=== PATIENT | male | born 1945 | race Caucasian/White ===

== ENCOUNTER 2016-09-01 08:48 | Day surgery (SDC) | payer MEDICARE, OTHER ==
[~2016-09-01] VITALS: Ht 177.8 cm; Wt 81.9 kg
[~2016-09-01 08:48] MED LIST: ASPI-557 PO; ESOM40CA PO; GLUC-176 PO; HYDR-2540 PO; LIDOCAINE 1% (10mg/ml) 2ml SDV INJ ONE; LR 1,000 ML IV SCH; MULT1CAP32 PO
--- OUTSIDE RECORDS SUMMARY | 2016-09-01 08:51 | XMS REPORT | Continuity of Care Document ---
Author Author [facility] Organization [facility] Address Unknown Phone Unavailable Support Name Relationship Address Phone ANGIE NATHAN MD Caregiver Unknown [phone] ERICK HOOK FACS, MD Caregiver [address] [place] [address] [place] [address] [phone] SPENCER CHAPMAN Next Of Kin [address] [place] [id number] Insurance Providers Payer Name Policy Number Subscriber Name Relationship Medicare [id number] David Chapman 18 Self Prime Wps [id number] David Chapman 18 Self Advance Directives Directive Response Recorded Date/Time Ordered Resuscitation Status Full Code 06/30/14 10:16am Resuscitation Documents on File No 06/30/14 9:20am Problems No known problems or medical conditions. Medications Medication Dose Route Sig Days/Qty Instructions Order Date Discontinued Date Status Aspirin 1 Tab PO DAILY 06/30/14 Active Hydrochlorothiazide 1 Tab PO GIVE WITH BREAKFAST 06/30/14 Active Multivitamin 1 Tab PO DAILY 06/30/14 Active Esomeprazole Magnesium 1 Cap PO DAILY 06/30/14 Active Glucosamine HCl/Chondr Spivey A Na 1 Tab PO DAILY 06/30/14 Active Social History Social History Problem Response Recorded Date/Time Chewing Tobacco Status No 06/30/2014 9:10am Hx Substance Use No 06/30/2014 9:10am Hx Alcohol Use Y OCCASIONAL 06/30/2014 9:10am Has the pt used tobacco in the last 12 months No 07/01/2014 7:30am Query Response Start Date Stop Date Smoking Status Never smoker Hospital Discharge Instructions No hospital discharge instructions. Plan of Care No plan of care. Functional Status No functional status results. Allergies, Adverse Reactions, Alerts Allergen Type Severity Reaction Status Last Updated NKDA Allergy Unknown Active 06/30/14 Immunizations Name Given Type Hx Influenza Vaccination Y 2013 Historical Hx Pneumococcal Vaccination No Historical Hx Influenza Vaccination Y 2013 Historical Vital Signs Acute Vital Signs Vital Response Date/Time Temperature (Fahrenheit) 98.0 deg F (96.8 - 99.1) Temperature (Calculated Celsius) 36.14214 degrees C (36.0 - 37.3) Temperature Source Temporal Pulse Rate (adult) 74 bpm (60 - 100) Respiratory Rate 16 breaths/min (10 - 20) O2 Sat by Pulse Oximetry 95 % (90 - 100) Oxygen Delivery Method Room Air Blood Pressure 145/77 mm Hg Blood Pressure Source Automatic Cuff Height 5 ft 11 in Weight 189 lb Body Mass Index 26.0 kg/m^2 Results Test Source Date Result Interp. Ref. Range Comments Activated Partial Thromboplast Time November 18, 2011 2:00am 30.0 SEC N 24- 36 Are you ordering this test to rule out VTE Yes Alanine Aminotransferase (ALT/SGPT) November 18, 2011 2:00am 10 U/L L 21-72 Albumin November 18, 2011 2:00am 4.0 G/DL N 3.5-5.0 Albumin/Globulin Ratio November 18, 2011 2:00am 1.6 RATIO N 1.1-2.2 Alkaline Phosphatase November 18, 2011 2:00am 67 U/L N 38-126 Anion Gap July 01, 2014 7:22am 10 MEQ/L N 5-15 COMMENT PREOP WILL CALL Aspartate Amino Transf (AST/SGOT) November 18, 2011 2:00am 20 U/L N 17-59 BUN/Creatinine Ratio July 01, 2014 7:22am 13 RATIO N 6-26 COMMENT PREOP WILL CALL Basophils # (Auto) November 18, 2011 2:00am 0.0 T/MM3 N 0-0.2 Are you ordering this test to rule out VTE Yes Basophils (%) (Auto) November 18, 2011 2:00am 0.3 % N 0-2 Are you ordering this test to rule out VTE Yes Blood Urea Nitrogen July 01, 2014 7:22am 13.0 MG/DL N 9-20 COMMENT PREOP WILL CALL Calcium Level July 01, 2014 7:22am 9.3 MG/DL N 8.4-10.2 COMMENT PREOP WILL CALL Calculated Osmolality July 01, 2014 7:22am 277 MOSM/KG N 261-280 COMMENT PREOP WILL CALL Carbon Dioxide Level July 01, 2014 7:22am 31 MEQ/L H 22-30 COMMENT PREOP WILL CALL Chemistry Specimen Hemolysis July 01, 2014 7:22am < 15 0-25 0-25: No Hemolysis.26-70: Slight Hemolysis - can falsely elevate K and Urine Protein. 71-285: Moderate Hemolysis - can falsely elevate K, Troponin I, CA 19-9, PTH, CSF GLucose, and Urine Protein, and can falsely decrease Phenytoin. 286-999: Gross Hemolysis - can falsely elevate K, Troponin I, CA 19-9, PTH, CSF Glucose, and Urine Protine, and can falsely decrease Phenytoin. Recommend specimen recollection. Chloride Level July 01, 2014 7:22am 103 MEQ/L N 98-107 COMMENT PREOP WILL CALL Conjugated Bilirubin November 18, 2011 2:00am 0.00 MG/DL N 0.00-0.30 Creatinine July 01, 2014 7:22am 1.0 MG/DL N 0.8-1.5 COMMENT PREOP WILL CALL D-Dimer November 18, 2011 2:00am < 150 NG/ML 0-230 <224 NG/ML= PRESUMPTIVE NEGATIVE FOR PE OR DVT>224 NG/ML=ADDITIONAL EVALUATION FOR PE OR DVT RECOMMENDED Eosinophils # (Auto) November 18, 2011 2:00am 0.1 T/MM3 N 0-0.5 Are you ordering this test to rule out VTE Yes Eosinophils (%) (Auto) November 18, 2011 2:00am 1.2 % N 0-4 Are you ordering this test to rule out VTE Yes Globulin November 18, 2011 2:00am 2.5 G/DL N 2.4-3.6 Glomerular Filtration Rate Calc July 01, 2014 7:22am 75 - COMMENT PREOP WILL CALL Glucose Level July 01, 2014 7:22am 98 MG/DL N 75-110 COMMENT PREOP WILL CALL Hematocrit November 18, 2011 2:00am 40.9 % L 41-53 Are you ordering this test to rule out VTE Yes Hemoglobin November 18, 2011 2:00am 15.5 GM/DL N 13.5-17.5 Are you ordering this test to rule out VTE Yes Icterus Index July 01, 2014 7:22am < 2 0-7 COMMENT PREOP WILL CALL Immature Granulocyte # (Auto) November 18, 2011 2:00am 0.01 T/MM3 N 0.00- 0.03 Are you ordering this test to rule out VTE Yes Immature Granulocyte % (Auto) November 18, 2011 2:00am 0.2 % N 0.0-0.5 Are you ordering this test to rule out VTE Yes Lipase November 18, 2011 2:00am 125 U/L N 23-300 Lymphocytes # (Auto) November 18, 2011 2:00am 2.1 T/MM3 N 1-4.8 Are you ordering this test to rule out VTE Yes Lymphocytes (%) (Auto) November 18, 2011 2:00am 32.4 % N 23-45 Are you ordering this test to rule out VTE Yes Mean Corpuscular Hemoglobin November 18, 2011 2:00am 31.8 UUG N 26-34 Are you ordering this test to rule out VTE Yes Mean Corpuscular Hemoglobin Concent November 18, 2011 2:00am 37.9 GM/DL H 31 -37 Are you ordering this test to rule out VTE Yes Mean Corpuscular Volume November 18, 2011 2:00am 84.0 UM3 N 80-100 Are you ordering this test to rule out VTE Yes Mean Platelet Volume November 18, 2011 2:00am 10.3 UM3 N 9.4-12.4 Are you ordering this test to rule out VTE Yes Monocytes # (Auto) November 18, 2011 2:00am 0.5 T/MM3 N 0-0.8 Are you ordering this test to rule out VTE Yes Monocytes (%) (Auto) November 18, 2011 2:00am 7.1 % N 0-9.0 Are you ordering this test to rule out VTE Yes VD-Xbp-U-Type Natriuretic Peptide November 18, 2011 2:00am 32 PG/ML N 0-175 Rule in cut points: <50 years old=450; 50-75 years old=900; >75 years old=1800; When utilizing ProBNP rule-in cut points, adjustment for impaired renal function is typically not required. Neutrophils # (Auto) November 18, 2011 2:00am 3.8 T/MM3 N 1.8-7.7 Are you ordering this test to rule out VTE Yes Neutrophils (%) (Auto) November 18, 2011 2:00am 58.8 % N 33-66 Are you ordering this test to rule out VTE Yes Platelet Count November 18, 2011 2:00am 188 T/MM3 N 130-400 Are you ordering this test to rule out VTE Yes Potassium Level July 01, 2014 7:22am 3.5 MEQ/L L 3.6-5 COMMENT PREOP WILL CALL Prothromb Time International Ratio November 18, 2011 2:00am 0.92 N 0.86- 1.10 THERAPUTIC RANGE=2.00-3.00 FOR ANTI-THROMBOSIS THERAPUTIC RANGE=2.50- 3.50 FOR IMPLANTED VALVE RDW Standard Deviation November 18, 2011 2:00am 39.3 FL N 36.9-50.2 Are you ordering this test to rule out VTE Yes Red Blood Count November 18, 2011 2:00am 4.87 M/MM3 N 4.50-5.90 Are you ordering this test to rule out VTE Yes Sodium Level July 01, 2014 7:22am 144 MEQ/L N 134-144 COMMENT PREOP WILL CALL Total Bilirubin November 18, 2011 2:00am 2.40 MG/DL H 0.20-1.30 Total Protein November 18, 2011 2:00am 6.5 G/DL N 6.3-8.2 Troponin I November 18, 2011 2:00am < 0.012 ng/ml 0-0.12 Turbidity July 01, 2014 7:22am < 20 0-20 COMMENT PREOP WILL CALL Unconjugated Bilirubin November 18, 2011 2:00am 2.20 MG/DL H 0.00-1.10 White Blood Count November 18, 2011 2:00am 6.5 T/MM3 N 4.5-11.0 Are you ordering this test to rule out VTE Yes Name: DAVID CHAPMAN Unit #: [id number] : 1945 Sex: M Loc / Svc: [facility] DOS: 05/21/14 Signed Report #: [id number] DIAGNOSTIC IMAGING REPORT TYPE OF EXAM: CT CHEST W/O CONTRAST Dictated By: DANA KENDALL MD INDICATION: ITS.REASON: PULMONARY NODULES CT CHEST W/O CONTRAST: Comparison: None Technique: Axial CT images were performed through the chest without intravenous contrast. Findings: 5 mm noncalcified nodule in the right lower lobe on image #43. The remainder of the right lung appears clear. Small 4 mm noncalcified nodule in the left lower lobe on image #47. Possible tiny nodule along the left diaphragmatic surface on image #54 measuring 5 mm. No additional pulmonary nodules or masses. Area of probable scarring within the lingula. No pleural effusion or pneumothorax. The central airways are patent. Thyroid gland appears normal. No axillary or mediastinal lymphadenopathy. Heart size is normal. No pericardial effusion. Left anterior descending coronary artery calcification. Unenhanced organs of the upper abdomen appear unremarkable part from multiple gallstones. Bone windows show no lytic or blastic osseous lesions. Impression: Two small pulmonary nodules as described above. These are most likely granulomas. Metastatic disease is thought to be less likely unless the patient has a known cancer diagnosis. Recommend correlation with outside studies to evaluate for interval change. If these have not been stable for two years, follow-up CT is recommended in 12 months if the patient is at low risk for lung malignancy or 6-12 months if he is at high risk for lung malignancy. . Procedures Procedure Status Date Provider(s) CT THORAX W/O DYE completed 05/21/14 Inguinal hernia repair completed 07/01/14 ERICK HOOK MD, FACS, CWS Encounters Encounter Location Date/Time Registered Clinic [facility] 05/21/14 12:44pm
--- OUTSIDE RECORDS SUMMARY | 2016-09-01 08:51 | XMS REPORT | Continuity of Care Document ---
Author Author [facility] Organization [facility] Address Unknown Phone Unavailable Support Name Relationship Address Phone ANGIE NATHAN MD Caregiver Unknown [phone] CATIE FORRESTER MD Caregiver [address] [place] [address] Unavailable SPENCER CHAPMAN Next Of Kin [address] [place] [address] Insurance Providers Payer Name Policy Number Subscriber Name Relationship Medicare [id number] David Chapman 18 Self Prime Wps [id number] David Chapman 18 Self Advance Directives Directive Response Recorded Date/Time Advanced Directives Type None 08/06/14 4:25am Problems Medical Problems Problem Onset Date Status Gall stones Unknown Active Gastritis Unknown Active Abdominal pain Unknown Active Medications Medication Dose Route Sig Days/Qty Instructions Order Date Discontinued Date Status Aspirin 1 Tab PO DAILY 06/30/14 Active Hydrochlorothiazide 1 Tab PO GIVE WITH BREAKFAST 06/30/14 Active Multivitamin 1 Tab PO DAILY 06/30/14 Active Esomeprazole Magnesium 1 Cap PO DAILY 06/30/14 Active Glucosamine HCl/Chondr Spivey A Na 1 Tab PO DAILY 06/30/14 Active Prochlorperazine Maleate 10 Mg PO THREE TIMES A DAY For NAUSEA &/OR VOMITING 30 Qty 08/06/14 Active Social History Social History Problem Response Recorded Date/Time Hx Substance Use No 08/06/2014 4:26am Hx Alcohol Use Y OCCAS 08/06/2014 4:26am Has the pt used tobacco in the last 12 months No 07/01/2014 7:30am Tobacco Usage none 08/06/2014 4:27am Query Response Start Date Stop Date Smoking Status Never smoker Hospital Discharge Instructions No hospital discharge instructions. Plan of Care No plan of care. Functional Status Query Response Date Recorded Physical Hygiene Self August 06, 2014 4:26am Disabilities Visual August 06, 2014 4:26am Devices Used Glasses August 06, 2014 4:26am Dressing Self August 06, 2014 4:26am Ambulation Self August 06, 2014 4:26am Diet Self August 06, 2014 4:26am Mental Status Alert August 06, 2014 6:09am Disabilities Visual August 06, 2014 4:26am Devices Used Glasses August 06, 2014 4:26am Physical Hygiene Self August 06, 2014 4:26am Dressing Self August 06, 2014 4:26am Ambulation Self August 06, 2014 4:26am Diet Self August 06, 2014 4:26am Allergies, Adverse Reactions, Alerts Allergen Type Severity Reaction Status Last Updated NKDA Allergy Unknown Active 08/06/14 Immunizations Name Given Type Hx Influenza Vaccination Y 2013 Historical Hx Pneumococcal Vaccination No Historical Hx Influenza Vaccination Y 2013 Historical Vital Signs Acute Vital Signs Vital Response Date/Time Temperature (Fahrenheit) 98.8 deg F (96.8 - 99.1) Temperature (Calculated Celsius) 37.00100 degrees C (36.0 - 37.3) Pulse Rate (adult) 84 bpm (60 - 100) Respiratory Rate 18 breaths/min (10 - 20) O2 Sat by Pulse Oximetry 94 % (90 - 100) Blood Pressure 133/81 mm Hg Height 5 ft 11 in Weight 194 lb Body Mass Index 27.0 kg/m^2 Results Test Source Date Result Interp. Ref. Range Comments Activated Partial Thromboplast Time November 18, 2011 2:00am 30.0 SEC N 24- 36 Are you ordering this test to rule out VTE Yes Alanine Aminotransferase (ALT/SGPT) August 06, 2014 4:44am 32 U/L N 21- 72 Albumin August 06, 2014 4:44am 4.1 G/DL N 3.5-5.0 Albumin/Globulin Ratio August 06, 2014 4:44am 1.5 RATIO N 1.1-2.2 Alkaline Phosphatase August 06, 2014 4:44am 58 U/L N 38-126 Anion Gap August 06, 2014 4:44am 14 MEQ/L N 5-15 Aspartate Amino Transf (AST/SGOT) August 06, 2014 4:44am 21 U/L N 17-59 BUN/Creatinine Ratio August 06, 2014 4:44am 16 RATIO N 6-26 Basophils # (Auto) August 06, 2014 4:44am 0.0 T/MM3 N 0-0.2 Basophils (%) (Auto) August 06, 2014 4:44am 0.4 % N 0-2 Blood Urea Nitrogen August 06, 2014 4:44am 16.0 MG/DL N 9-20 Calcium Level August 06, 2014 4:44am 9.2 MG/DL N 8.4-10.2 Calculated Osmolality August 06, 2014 4:44am 275 MOSM/KG N 261-280 Carbon Dioxide Level August 06, 2014 4:44am 27 MEQ/L N 22-30 Chemistry Specimen Hemolysis August 06, 2014 4:44am 16 N 0-25 0-25: No Hemolysis.26-70: Slight Hemolysis - [...] decrease Phenytoin. Recommend specimen recollection. Chloride Level August 06, 2014 4:44am 101 MEQ/L N 98-107 Conjugated Bilirubin November 18, 2011 2:00am 0.00 MG/DL N 0.00-0.30 Creatinine August 06, 2014 4:44am 1.0 MG/DL N 0.8-1.5 D-Dimer November 18, 2011 2:00am < 150 NG/ML 0-230 <224 NG/ML= PRESUMPTIVE NEGATIVE FOR PE OR DVT>224 NG/ML=ADDITIONAL EVALUATION FOR PE OR DVT RECOMMENDED Eosinophils # (Auto) August 06, 2014 4:44am 0.1 T/MM3 N 0-0.5 Eosinophils (%) (Auto) August 06, 2014 4:44am 1.3 % N 0-4 Globulin August 06, 2014 4:44am 2.7 G/DL N 2.4-3.6 Glomerular Filtration Rate Calc August 06, 2014 4:44am 75 - Glucose Level August 06, 2014 4:44am 124 MG/DL H 75-110 Hematocrit August 06, 2014 4:44am 40.3 % L 41-53 Hemoglobin August 06, 2014 4:44am 15.0 GM/DL N 13.5-17.5 Icterus Index August 06, 2014 4:44am 2 N 0-7 Immature Granulocyte # (Auto) August 06, 2014 4:44am 0.02 T/MM3 N 0.00- 0.03 Immature Granulocyte % (Auto) August 06, 2014 4:44am 0.3 % N 0.0-0.5 Lipase August 06, 2014 4:44am 117 U/L N 23-300 Lymphocytes # (Auto) August 06, 2014 4:44am 2.5 T/MM3 N 1-4.8 Lymphocytes (%) (Auto) August 06, 2014 4:44am 35.9 % N 23-45 Mean Corpuscular Hemoglobin August 06, 2014 4:44am 31.2 UUG N 26-34 Mean Corpuscular Hemoglobin Concent August 06, 2014 4:44am 37.2 GM/DL H 31-37 Mean Corpuscular Volume August 06, 2014 4:44am 83.8 UM3 N 80-100 Mean Platelet Volume August 06, 2014 4:44am 10.3 UM3 N 9.4-12.4 Monocytes # (Auto) August 06, 2014 4:44am 0.5 T/MM3 N 0-0.8 Monocytes (%) (Auto) August 06, 2014 4:44am 7.0 % N 0-9.0 AQ-Mbn-I-Type Natriuretic Peptide November 18, 2011 2:00am 32 PG/ML N 0-175 Rule in cut points: <50 years old=450; 50-75 years old=900; >75 years old=1800; When utilizing ProBNP rule-in cut points, adjustment for impaired renal function is typically not required. Neutrophils # (Auto) August 06, 2014 4:44am 3.9 T/MM3 N 1.8-7.7 Neutrophils (%) (Auto) August 06, 2014 4:44am 55.1 % N 33-66 Platelet Count August 06, 2014 4:44am 179 T/MM3 N 130-400 Potassium Level August 06, 2014 4:44am 3.1 MEQ/L L 3.6-5 Prothromb Time International Ratio November 18, 2011 2:00am 0.92 N 0.86- 1.10 THERAPUTIC RANGE=2.00-3.00 FOR ANTI-THROMBOSIS THERAPUTIC RANGE=2.50- 3.50 FOR IMPLANTED VALVE RDW Standard Deviation August 06, 2014 4:44am 40.9 FL N 36.9-50.2 Red Blood Count August 06, 2014 4:44am 4.81 M/MM3 N 4.50-5.90 Sodium Level August 06, 2014 4:44am 142 MEQ/L N 134-144 Total Bilirubin August 06, 2014 4:44am 2.10 MG/DL H 0.20-1.30 Total Protein August 06, 2014 4:44am 6.8 G/DL N 6.3-8.2 Troponin I August 06, 2014 4:44am 0.016 ng/ml N 0-0.12 Turbidity August 06, 2014 4:44am < 20 0-20 Unconjugated Bilirubin November 18, 2011 2:00am 2.20 MG/DL H 0.00-1.10 White Blood Count August 06, 2014 4:44am 7.0 T/MM3 N 4.5-11.0 Name: DAVID CHAPMAN Unit #: [id number] : 1945 Sex: M Loc / Svc: [facility] DOS: 05/21/14 Signed Report #: [id number] DIAGNOSTIC IMAGING REPORT TYPE OF EXAM: CT [...] Provider(s) CT THORAX W/O DYE completed 05/21/14 ROUTINE VENIPUNCTURE completed 07/01/14 PRP I/SHANITA INIT REDUC >5 YR completed 07/01/14 ERICK HOOK MD, FACS, CWS METABOLIC PANEL TOTAL CA completed 07/01/[id number] ITEM OR SERVICE completed 07/01/14"INJECTION, CEFAZOLIN SODIUM, 500 MG" completed 07/01/14"INJECTION, KETOROLAC TROMETHAMINE, PER 15 MG" completed 07/01/14 PROPOFOL INJ 500 MG/50ML completed 07/01/14 PROPOFOL INJ 500 MG/50ML completed 07/01/14"INJECTION, FENTANYL CITRATE, 0.1 MG" completed 07/01/14"RINGERS LACTATE INFUSION, UP TO 1000 CC" completed 07/01/14 Encounters Encounter Location Date/Time Registered Emergency Room [facility] 08/06/14 4:01am Registered Clinic [facility] 05/21/14 12:44pm Recent Diagnosis
[2016-09-01 09:04] VITALS: Ht 177.8 cm; Wt 81.9 kg
[2016-09-01 09:05] VITALS: BP 149/80; PULSE 94; RESP 14; TEMP 97.9; O2SAT 98
--- NOTE | 2016-09-01 10:00 | ANESPREOP ---
Anesthesia Record Date and Time DATE: 09/01/16 TIME: 09:58 Pre-Op Diagnosis Reflux Proposed Surgical Procedure colonoscopy and egd NPO since: Midnight Allergies: Coded Allergies: NKDA (Unverified Allergy, Unknown, 08/31/16) Ht/Wt/BMI Height: 5 ' 10.00 " Weight: 81.900 kg BMI: 25.9 kg/m2 Vital Signs Date Time Temp Pulse Resp B/P Pulse Ox O2 Delivery O2 Flow Rate FiO2 09/01/16 09:05 97.9 94 14 149/80 98 Room Air Medications Inpatient Medications Current Medications Medications (Trade) Dose Ordered Sig/Patsy Start Time Stop Time Status Last Admin Dose Admin Lactated Ringer's (Lactated Ringers) 1,000 ml @ 50 mls/hr Q20H 09/01/16 07:00 09/01/16 09:25 50 MLS/HR Aspirin (Aspir 81) 81 Mg Tablet.dr, 1 TAB PO DAILY, (Reported) Last Taken: on 08/31/16 0800 Esomeprazole Magnesium (Nexium) 40 Mg Capsule.dr, 1 CAP PO DAILY, (Reported) Last Taken: on 08/31/16 0800 Glucosamine HCl/Chondr Spivey A Na (Osteo Bi-Flex Caplet) 1 Each Tablet, 1 TAB PO DAILY, (Reported) Last Taken: on 08/31/16 0800 Hydrochlorothiazide (Hydrochlorothiazide) 50 Mg Tablet, 1 TAB PO WB, (Reported) Last Taken: on 08/31/16 0800 Multivitamin (Multivitamins) 1 Each Capsule, 1 TAB PO DAILY, (Reported) Last Taken: on 08/31/16 0800 Currently on Beta Sindi: Yes Medical/Surgical History Anesthesia PMH: Reports: *Hypertension (takes meds), Arthritis (fingers), Hiatal Hernia, Reflux (HX), Denies: *Angina, *Diabetes, *VA, Anesthesia Reactions (NO AIRWAY ISSUES), Blood Transfusion Reac, CHF, Cancer, Cardiac Arrythmia, Clotting Problems, Deep Vein Thrombosis, Glaucoma, Malignant Hyperthermia, Pacemaker, Renal Disease, Thyroid Disease Smoking Status: Never smoker Has pt. smoked today?: No Use Chewing Tobacco?: No Second Hand Exposure: No Substance Use Type: does not use Alcohol Intake: none Past Surgical History Orthopedic Surgeries: Abdominal Surgeries: Yes - HERNIA 06/2014, GALLBLADDER 02/2015, APPENDECTOMY 1979 Genitourinary Surgeries: Cardiac Surgeries: Endocrine Surgeries: Reproductive Surgeries: Yes - VASECTOMY Neurological Surgeries: Ear Surgeries: Nose Surgeries: Throat Surgeries: Yes - TONSILLECTOMY, EGD Other Surgeries: Yes - COLONOSCOPY Anesthesia Adverse Reactions: FOUND none Family Hx of Anesthesia Advers: none Hx of Motion Sickness: No Pertinent Findings EKG Rhythm: Sinus Rhythm Physical Exam Respiratory: Lungs clear Cardiovascular: FOUND Regular rate, rhythm Airway Assessment Mallampati Score: II TMD: 3 Fingerbreadths Neck Extension: Good Overall Assessment: No Airway Concerns ASA: 2 Plan Anesthesia Plan: TIVA Discussion Discussed risks/options/alternatives of anesthesia and questions answered. Patient consents. Nursing pain assessment noted. Attestation Statement Prior to the delivery of any anesthetic medication, I examined the patient, developed the plan, obtained the patient's consent and discussed the risk and benefits of the procedure with the patient/guardian. ILSA INIGUEZ CRNA Sep 01, 2016 10:00
[2016-09-01] MEDS ORDERED: PROPOFOL 500mg 50 ML IV ONE (10:05)
[2016-09-01] MEDS ORDERED: LIDOCAINE VISCOUS 2% Oral Soln 15ml UD ONE (10:08)
[2016-09-01] MEDS ORDERED: FENTANYL 100mcg/2ml INJECTION ONE (10:10)
[2016-09-01] MEDS ORDERED: PROPOFOL 200mg 20 ML IV ONE (10:42)
[2016-09-01 11:01] VITALS: BP 110/51; PULSE 74; RESP 12; TEMP 97.2; O2SAT 97
--- NOTE | 2016-09-01 11:04 | GSPOSTPROC ---
Immediate Operative Note DATE: 09/01/16 TIME: 11:03 Postop Diagnosis: Miller`s esophagus,colon polyp Surgical Procedure: EGD w/Biopsies, C-scope w/Polypectomy Surgeon: Cain ASA: 2 BRYNN HUYNH MD Sep 01, 2016 11:04
[2016-09-01 11:10] VITALS: BP 98/55; PULSE 78; RESP 15; O2SAT 95
[2016-09-01 11:20] VITALS: BP 121/78; PULSE 78; RESP 16; O2SAT 97
[2016-09-01 11:30] VITALS: BP 118/56; PULSE 78; RESP 15; O2SAT 99
[2016-09-01 11:40] VITALS: BP 125/67; PULSE 77; RESP 17; O2SAT 98
--- NOTE | 2016-09-01 19:33 | OPNOTEF ---
DATE OF OPERATION 09/01/2016 PREOPERATIVE DIAGNOSES 1. Gastroesophageal reflux disease. 2. Miller's esophagus. 3. Desire for screening for colon and rectal carcinoma. 4. Status post ileocecectomy or right hemicolectomy for treatment of acute appendicitis with perforation. POSTOPERATIVE DIAGNOSES 1. Gastroesophageal reflux disease. 2. Miller's esophagus. 3. Gastric polyps. 4. Desire for screening for colon and rectal carcinoma. 5. Status post ileocecectomy or right hemicolectomy for treatment of acute appendicitis with perforation. 6. Colon polyp. OPERATION Esophagogastroduodenoscopy with biopsies and total colonoscopy with polypectomy. SURGEON Khai Barlow MD ANESTHESIA TIVA. ASA CLASS 2. FINDINGS The patient did have Miller's esophagus changes at the distal 4 cm of the esophagus. These were typical Miller's esophagus changes. There was no ulceration at this area. There were no exophytic tumor masses anywhere at this area. The esophagus otherwise appeared normal. Proximal and mid esophagus appeared normal. The stomach appeared completely normal except for some small gastric polyps. The duodenum appeared completely normal. The patient did have postoperative changes from a previous ileocecectomy or right hemicolectomy operation. The patient was thought to most likely have a previous ileocecectomy. The anastomosis with small bowel to colon was easy to identify. There were no colon or rectal tumors. The patient did have one polypoid structure located 60 cm proximal to the anal verge. This was a sessile polypoid structure located 60 cm proximal to the anal verge. There were no other colon polyps. There were no rectal polyps. There were no colonic angiodysplasia lesions. There was no inflammatory bowel disease. DESCRIPTION OF OPERATION The patient was brought to the endoscopy room. The patient was placed on a cart in the endoscopy room. The patient was placed in the left lateral recumbent position on the cart. The patient was premedicated with intravenous sedation medication administered by the nurse orthotics technician. The Olympus upper GI endoscope was used. The upper GI endoscope was introduced into the esophagus. The upper GI endoscope was advanced down through the esophagus and stomach into the duodenum. The upper GI endoscope was then withdrawn from the duodenum back into the stomach. The upper GI endoscope was retroflexed and the gastroesophageal junction was viewed from below. The upper GI endoscope was straightened out. Stomach was examined further. The endoscopic biopsy forceps was used to remove three of the gastric polyps which were present. Each of these three polyps was submitted for study by the pathologist. The upper GI endoscope was then withdrawn from the stomach up into the esophagus. The endoscopic biopsy forceps was used to obtain multiple biopsies of mucosa at the distal 4 cm of the esophagus at the portion of the esophagus which appeared to be affected with Miller's esophagus changes. These biopsies were performed at all four quadrants around the circumference of the esophagus at intervals not more than 2 cm apart from one another. They were performed closer to the levels 1 cm apart from one another. Multiple biopsies were performed. These were all placed in a container and submitted for study by the pathologist. The upper GI endoscope was then withdrawn the remainder of the way out through the esophagus and removed from the patient. The patient was kept in the left lateral recumbent position on the cart in the endoscopy room. The patient continued to receive intravenous sedation medication administered by the nurse orthotics technician. Total colonoscopy was performed. The Olympus colonoscope was used. The colonoscope was introduced into the rectum. The colonoscope was advanced up through the rectum and colon all the way up to the anastomosis of small bowel to colon. The anastomosis was clearly identified. The colonoscope was then withdrawn back out through the colon. As the colonoscope was withdrawn, a sessile polypoid structure was seen at a level 60 cm proximal to the anal verge. This was removed with the electrocautery snare device and retrieved and submitted as a specimen for study by the pathologist. The colonoscope was then withdrawn the remainder of the way out through the colon and rectum and removed from the patient. Digital rectal examination was performed. Findings throughout the procedure were as described above. The patient did continue to receive intravenous sedation medication administered by the nurse orthotics technician throughout the operation. The patient did tolerate the operation well. [place]
== END 2016-09-01 12:23 | disposition home or self-care (01) ==
LOC: SCU 08:48
PROVIDERS: ATTEND Surgery
DX: K31.7 Polyp of stomach and duodenum (principal); K22.70 Barrett's esophagus without dysplasia; K21.0 Gastro-esophageal reflux disease with esophagitis; Z12.11 Encounter for screening for malignant neoplasm of colon; K63.5 Polyp of colon; Z90.49 Acquired absence of other specified parts of digestive tract; I10 Essential (primary) hypertension; E78.5 Hyperlipidemia, unspecified; Z79.82 Long term (current) use of aspirin; Z79.899 Other long term (current) drug therapy
CPT/HCPCS: 43239; 45385; J2704; J3010; J7120